=== PATIENT | female | born 1935 | race Caucasian/White ===

== ENCOUNTER → 2018-10-07 14:25 | Outpatient (CLI) | payer MEDICARE, OTHER, SELFPAY ==
--- NOTE | 2018-10-07 14:33 | DI.RAD.S_ITS ---
PROCEDURE: XR CHEST 2V INDICATIONS: cough TECHNIQUE: 2 views of the chest were acquired. COMPARISON: [facility], , CHEST 1 VIEW, 01/07/2017, 12:11. FINDINGS: Surgical changes and devices: None. Lungs and pleura: No pleural effusions or pneumothorax. Lungs are clear. Mediastinum: Mediastinal contours are normal. Heart size is normal. There is aortic atherosclerosis. Bones and chest wall: No suspicious bony abnormalities. Degenerative changes of the spine and shoulders are present. Soft tissues appear unremarkable. IMPRESSION: Stable chest. No acute cardiopulmonary process is evident. Dictated by: Kade Nation M.D. on 10/07/2018 at 14:24 Approved by: Kade Nation M.D. on 10/07/2018 at 14:27
== END ==
PROVIDERS: Family Provider Family Medicine; PCP Family Medicine; Visit Provider Physician Assistant
DX: R05 Cough (principal); I70.0 Atherosclerosis of aorta
CPT/HCPCS: 71046

== ENCOUNTER → 2019-01-24 11:52 | Outpatient (CLI) | payer MEDICARE, OTHER, SELFPAY ==
--- NOTE | 2019-01-24 11:56 | DI.RAD.S_ITS ---
PROCEDURE: XR CHEST 2V INDICATIONS: bronchitis TECHNIQUE: 2 views of the chest were acquired. COMPARISON: [facility], CR, XR CHEST 2V, 10/07/2018, 14:39. FINDINGS: Surgical changes and devices: None. Lungs and pleura: Lungs are hyperinflated demonstrating chronically coarse interstitial markings and peripheral subpleural fibrotic changes.. No pleural effusions or pneumothorax. Mediastinum: Mediastinal contours are normal. Heart size is normal. Bones and chest wall: No suspicious bony abnormalities. Soft tissues appear unremarkable. Chronic, mild midthoracic compression fracture. IMPRESSION: Changes of emphysema/COPD and fibrosis without overlying pneumonia. Dictated by: Jesusita Figueroa M.D. on 01/24/2019 at 13:58 Approved by: Jesusita Figueroa M.D. on 01/24/2019 at 13:59
[2019-01-24 13:32] LABS: Add Manual Diff / Slide Review NO; Basophils Absolute Auto 0 /uL (0-100); Basophils Percent Auto 0.3 % (0-2); Eosinophils Absolute Auto 0 /uL (0-450); Eosinophils Percent Auto 0.3 % (2-4); Hematocrit 39.6 % (36-46); Hemoglobin 13.5 g/dL (12.0-16.0); Lymphocytes Absolute Auto 1700 /uL (1100-4500); Lymphocytes Percent Auto 26.1 % (25-40); Mean Corpuscular HGB Conc 34.1 % (30-36); Mean Corpuscular Volume 90.9 fL (80-100); Monocytes Absolute Auto 700 /uL (0-900); Monocytes Percent Auto 10.8 % (3-14); Neutrophils Absolute Auto 4100 /uL (1500-7000); Neutrophils Percent Auto 62.5 % (50-75); Platelet Count 174 X10^3/uL (150-400); Red Blood Cell Count 4.36 X10^6/uL (4.0-5.2); Red Cell Distribution Width 14.4 % (11.6-14.8); White Blood Cell Count 6.6 X10^3/uL (4.5-11.0)
[2019-01-24 14:27] LABS: Blood Urea Nitrogen 14 mg/dL (7-17); Calcium 9.1 mg/dL (8.4-10.2); Carbon Dioxide 31 mmol/L (22-32); Chloride 95 mmol/L (98-107); Estimated Glomerular Filt Rate > 60.0 mL/min (>60); Glucose 108 mg/dL (80-110); HEMOLYSIS < 15 (0-50); Sodium 135 mmol/L (137-145)
== END ==
PROVIDERS: Family Provider Family Medicine; PCP Family Medicine; Visit Provider Hospitalist
DX: J44.9 Chronic obstructive pulmonary disease, unspecified (principal)
CPT/HCPCS: 36415; 71046; 80048; 85025

== ENCOUNTER → 2019-03-10 12:42 | Outpatient (CLI) | payer MEDICARE, OTHER, SELFPAY ==
--- NOTE | 2019-03-10 | DI.MG.S_ITS ---
BILATERAL DIGITAL SCREENING MAMMOGRAM 3D/2D WITH CAD: 03/10/2019 CLINICAL: Routine screening. Comparison is made to exams dated: 01/13/2018 mammogram, 11/05/2016 mammogram, 07/30/2015 mammogram, 06/13/2014 mammogram, and 04/12/2013 mammogram - [facility]. The tissue of both breasts is heterogeneously dense. This may lower the sensitivity of mammography. Current study was also evaluated with a Computer Aided Detection (CAD) system. There are benign vascular calcifications in both breasts. There is a mole marker on the left breast. There is a linear scar marker overlying the left breast. No significant masses, calcifications, or other findings are seen in either breast. There has been no significant interval change. IMPRESSION: There is no mammographic evidence of malignancy. A 1 year screening mammogram is recommended. This exam was interpreted at Station ID: [id number]. NOTE: For mammograms, a report in lay terms will be sent to the patient. Approximately 15% of breast malignancies will not be visualized mammographically. In the management of a palpable breast mass, a negative mammogram must not discourage biopsy of a clinically suspicious lesion. Electronically Signed By: Juan Pablo Mary M.D. ecl/:03/10/2019 17:40:09 letter sent: Normal Exam ACR BI-RADS Category 2: Benign Finding(s) [id number]
== END ==
PROVIDERS: Family Provider Family Medicine; PCP Family Medicine; Visit Provider Family Medicine
DX: Z12.31 Encounter for screening mammogram for malignant neoplasm of breast (principal)
CPT/HCPCS: 77063; 77067

== ENCOUNTER → 2019-04-10 11:25 | Outpatient (CLI) | payer MEDICARE, OTHER, SELFPAY ==
--- NOTE | 2019-04-10 11:28 | DI.MRI.S_ITS ---
PROCEDURE: MR HEAD/BRAIN WO CON INDICATIONS: anosmia TECHNIQUE: Non-contrast axial T1 spin echo, axial T2 fast spin echo, sagittal and axial FLAIR, coronal T2 fast spin echo, axial gradient echo, axial diffusion and ADC through the brain. COMPARISON: None. FINDINGS: Image quality: Excellent. CSF spaces: Ventricles appear symmetric in size and shape. Basal cisterns are patent. No extra-axial fluid collections. Brain: No intracranial bleeds or mass effects. There is cerebral volume loss for age. There are periventricular and deep white matter chronic small vessel ischemic changes. Brainstem appears normal. Diffusion-weighted images show no acute ischemic insults. No chronic ischemic insults but microvascular atherosclerotic changes relatively prominent in this patient, consistent with advanced age.. Normal intravascular flow voids are present. Skull and face: Calvarial bone marrow is normal in signal. Orbits are normal. Sinuses: Sinuses and mastoids are clear. IMPRESSION: Moderately severe microvascular atherosclerotic change in the deep white matter of each hemisphere, consistent with advanced age. No area of mass or trauma is found that would explain anosmia. The adjacent paranasal sinuses appear normal. Dictated by: Haris Cancino M.D. on 04/10/2019 at 12:48 Approved by: Haris Cancino M.D. on 04/10/2019 at 12:50
== END ==
PROVIDERS: PCP Family Medicine; Visit Provider Family Medicine
DX: R43.0 Anosmia (principal); I67.2 Cerebral atherosclerosis
CPT/HCPCS: 70551

== ENCOUNTER → 2019-06-29 08:38 | Outpatient (CLI) | payer MEDICARE, OTHER, SELFPAY ==
--- NOTE | 2019-06-29 08:41 | DI.US.S_ITS ---
PROCEDURE: US PERIPH VENOUS LOW EXTREM LT INDICATIONS: INTERMITTENT LEFT LEG SWELLING TECHNIQUE: Real-time imaging, as well as color and pulse Doppler interrogation, were performed of the lower extremity deep veins from the inguinal ligament to the popliteal fossa. COMPARISON: None. FINDINGS: The common femoral, femoral and popliteal veins are normally compressible, and free of intraluminal thrombus. Color and pulse Doppler demonstrate normal phasic intraluminal flow. There is normal augmentation response to distal compression maneuver. IMPRESSION: Negative for deep venous thrombosis. Dictated by: Tan Barnett M.D. on 06/29/2019 at 10:34 Approved by: Tan Barnett M.D. on 06/29/2019 at 10:35
== END ==
PROVIDERS: Family Provider Family Medicine; PCP Family Medicine; Visit Provider Nurse Practitioner Family
DX: R60.0 Localized edema (principal); M25.472 Effusion, left ankle
CPT/HCPCS: 93971

== ENCOUNTER → 2020-11-28 15:40 | Outpatient (CLI) | payer OTHER, MEDICARE, SELFPAY ==
[2020-11-28] MEDS: COVID-19 VACC #1, MRNA(MOD) 100 MCG/0.5 ML VIAL IM (15:56)
== END ==
PROVIDERS: Family Provider Family Medicine; PCP Family Medicine; Visit Provider Internal Medicine
DX: Z23 Encounter for immunization (principal)
CPT/HCPCS: 0011A; 91301

== ENCOUNTER → 2020-12-26 15:29 | Outpatient (CLI) | payer MEDICARE, SELFPAY ==
[2020-12-26] MEDS: COVID-19 VACC #2, MRNA(MOD) 100 MCG/0.5 ML VIAL IM (15:32)
== END ==
PROVIDERS: Family Provider Family Medicine; PCP Nurse Practitioner Family; Visit Provider Internal Medicine
DX: Z23 Encounter for immunization (principal)
CPT/HCPCS: 0012A; 91301

== ENCOUNTER 2020-12-31 14:46 | Emergency (ER) | payer MEDICARE, OTHER, SELFPAY ==
[2020-12-31 15:01] VITALS: PULSE 71; RESP 22; TEMP 36.4; O2SAT 95
== END 2020-12-31 17:50 | disposition left against medical advice (07) ==
PROVIDERS: Emergency Provider Emergency Medicine; Family Provider Family Medicine; PCP Nurse Practitioner Family
CPT/HCPCS: 99281

== ENCOUNTER 2021-01-01 10:55 | Emergency (ER) | payer MEDICARE, OTHER, SELFPAY ==
--- NOTE | 2021-01-01 11:09 | PC.NURSE ---
pt here 1 days ago and left before coming back to a room.
[2021-01-01 11:21] VITALS: BP 205/98; PULSE 64; RESP 17; TEMP 36.3; O2SAT 99
--- NOTE | 2021-01-01 11:27 | ED.SKABFB ---
HPI - Skin/Abscess/Foreign Bdy General Chief complaint: Allergic Reaction Stated complaint: Covid vaccine reaction facial rash 12/26 Time Seen by Provider: 01/01/21 11:19 Source: patient Mode of arrival: Ambulatory Limitations: no limitations History of Present Illness HPI narrative: Patient is an 85-year-old female who presents with rash on her face ongoing since November 20 since just after her 1st COVID vaccination. She says it persisted is even through to her 2nd it is pruritic in nature it seems to be only on her face. She has tried Vaseline and hydrocortisone cream but it does not seem to be getting any better. It is not anywhere else on her body she says when she scratches it it gray. MD complaint: rash Location: face Related Data Previous Rx's Medication Instructions Recorded metoprolol succinate 50 mg 50 mg PO QDAY #90 tab 12/12/20 tablet,extended release 24 hr prednisone 40 mg PO DAILY #10 tab 01/01/21 Allergies Allergy/AdvReac Type Severity Reaction Status Date / Time No Known Drug Allergies Allergy Verified 06/28/19 08:52 Review of Systems Review of Systems Narrative: GENERAL: Denies chills,fever HEENT: Denies throat pain RESPIRATORY: Denies dyspnea, cough, wheezing CARDIOVASCULAR: Denies chest pain, palpitations GASTROINTESTINAL: Denies nausea, vomiting MUSCULOSKELETAL: Denies extremity pain, injury SKIN: See HPI NEUROLOGIC: Denies weakness, dizziness, headache, numbness 8 point review of systems is negative except for those stated above and HPI Patient History Medical History High blood pressure Seborrheic dermatitis (02/01/15) Social History Smoking Status: Former smoker Smoking Status: Former smoker Exam Initial Vital Signs Initial Vital Signs: Vital Signs Temperature 97.4 F L 01/01/21 11:21 Pulse Rate 64 01/01/21 11:21 Respiratory Rate 17 01/01/21 11:21 Blood Pressure 205/98 H 01/01/21 11:21 Pulse Oximetry 99 01/01/21 11:21 GENERAL: Alert pleasant 85-year-old female and in no acute distress. HEENT: Head atraumatic,EOMI, pupils reactive, face symmetric, moist mucous membranes CARDIOVASCULAR: Regular rate and rhythm without murmurs, rubs or gallops. RESPIRATORY: Breath sounds equal bilaterally, no wheezes rales or rhonchi. EXTREMITIES: Normal range of motion, no clubbing or edema. Neurovascularly intact NEUROLOGICAL: Alert and oriented x4.Normal gait and speech. Cranial nerves II through XII grossly intact. SKIN: Erythematous along for head and hair lines. And not too much on face. No other hives or erythema on back torso or extremities Course Vital Signs Vital signs: Vital Signs - 8 hr 01/01/21 11:21 Temperature 97.4 F L Pulse Rate 64 Respiratory Rate 17 Blood Pressure 205/98 H Pulse Oximetry 99 Discharge Plan Departure Patient Disposition: Home Clinical Impression: Rash Instructions: Hives, DI for Hives, DI for General Allergic Reactions Activity Restrictions/Additional Instructions: *You have been diagnosed with rash *What to do: This is likely from the vaccination, at this time unlikely to be infected. *Continue to take medications as directed prednisone 40 mg once a day for 5 days--> sent to [facility] Benadryl 25 mg every 6 hours if needed for itching *Follow up with your primary care provider in 2-3 days *Return to ER if you should have worsening rash fever shortness of breath tongue swelling lip swelling or any new, worsening or concerning symptoms Prescriptions: New prednisone 20 mg tablet 40 mg PO DAILY Qty: 10 RF: 0 No Action metoprolol succinate [Toprol XL] 50 mg tablet extended release 24 hr 50 mg PO QDAY Qty: 90 RF: 0 Referrals: Annie Nation ARNP [Primary Care Provider] -
== END 2021-01-01 11:40 | disposition home or self-care (01) ==
PROVIDERS: Emergency Provider Emergency Medicine; Family Provider Family Medicine; PCP Nurse Practitioner Family
DX: R21 Rash and other nonspecific skin eruption (principal)
CPT/HCPCS: 99281

== ENCOUNTER → 2021-03-10 10:08 | Outpatient (CLI) | payer OTHER, SELFPAY ==
[2021-03-10 10:45] LABS: Hematocrit 42.1 % (36-46); Hemoglobin 14.3 g/dL (12.0-16.0); Mean Corpuscular HGB Conc 33.9 % (30-36); Mean Corpuscular Hemoglobin 31.5 PG (26-34); Mean Corpuscular Volume 92.9 fL (80-100); Platelet Count 182 X10^3/uL (150-400); Red Blood Cell Count 4.54 X10^6/uL (4.0-5.2); Red Cell Distribution Width 14.5 % (11.6-14.8); White Blood Cell Count 7.9 X10^3/uL (4.5-11.0)
[2021-03-10 11:11] LABS: Alanine Aminotransferase 17 IU/L (<35); Albumin 4.5 g/dL (3.5-5.0); Albumin Globulin Ratio 1.4 (1.0-2.8); Alkaline Phosphatase 87 U/L (38-126); Aspartate Aminotransferase 29 IU/L (14-36); BUN Creatinine Ratio 16.9 (6-22); Blood Urea Nitrogen 12 mg/dL (7-17); Calcium 9.6 mg/dL (8.4-10.2); Carbon Dioxide 28 mmol/L (22-32); Chloride 102 mmol/L (98-107); Cholesterol 220 mg/dL (140-199); Estimated Glomerular Filt Rate > 60.0 mL/min (>60); Globulin 3.2 g/dL (1.7-4.1); Glucose 102 mg/dL (80-110); HDL Cholesterol 60 mg/dL (40-60); HEMOLYSIS < 15 (0-50); LDL Cholesterol Calculated 144 mg/dL (<100); Potassium 3.8 mmol/L (3.4-5.1); Sodium 138 mmol/L (137-145); Total Protein 7.7 g/dL (6.3-8.2); Triglycerides 82 mg/dL (35-150)
[2021-03-10 11:42] LABS: TSH w/ Reflex to FT4 2.18 uIU/mL (0.47-4.68)
[2021-03-10 11:53] LABS: Vitamin B12 324 pg/mL (239-931)
== END ==
PROVIDERS: Family Provider Family Medicine; PCP Nurse Practitioner Family; Referring Provider Nurse Practitioner Family; Visit Provider Nurse Practitioner Family
DX: I10 Essential (primary) hypertension (principal); F41.9 Anxiety disorder, unspecified; G62.9 Polyneuropathy, unspecified; Z13.6 Encounter for screening for cardiovascular disorders
CPT/HCPCS: 36415; 80053; 80061; 82607; 84443; 85027

== ENCOUNTER 2021-05-14 21:15 | Observation (INO) | payer OTHER, SELFPAY ==
[2021-05-14] VITALS (12 sets, daily range): BP systolic 162–209; BP diastolic 71–105; PULSE 76–105; RESP 15–29; O2SAT 87–96
--- NOTE | 2021-05-14 21:31 | ED.NEUROSD ---
HPI - Neuro Symptoms/Deficit General Chief Complaint: Neuro Symptoms/Deficit Stated Complaint: Stroke Time Seen by Provider: 05/14/21 21:16 History of Present Illness HPI Narrative: 85-year-old female nonsmoker with history of hypertension presents by EMS as a code stroke due to a sudden onset of garbled speech that started at 7:45 p.m. per EMS. She was reported to be in her normal state of health prior to this event. She does not take any blood thinners. She has a very poor historian and contributes little to nothing to the exam. EMS reports that she had a brief improvement in her symptoms but in front of them started becoming confused and garbled again. She is activated as a code stroke and taken directly to CT. Related Data Previous Rx's Medication Instructions Recorded metoprolol succinate 50 mg 50 mg PO QDAY #90 tab 02/04/21 tablet,extended release 24 hr (Toprol XL) buspirone 5 mg tablet 5 mg PO DAILY #90 tab 03/13/21 ketoconazole 2 % topical cream 1 applic TOPICAL DAILY #30 g 03/13/21 sertraline 25 mg tablet 25 mg PO DAILY #90 tab 04/22/21 Allergies Allergy/AdvReac Type Severity Reaction Status Date / Time No Known Drug Allergies Allergy Verified 04/22/21 11:19 Review of Systems Review of Systems ROS Unobtainable: Unobtainable due to mental status/LOC Patient History Medical History Abnormal chest xray Anxiety (~2019) Cataracts, bilateral Chicken pox Depression (~2019) Diverticular disease (~1969) Eczema Endometriosis Essential hypertension (01/14/17) Fibroids Hearing loss Heart murmur Measles Mixed hyperlipidemia Neuropathy Peripheral neuropathy (~2018) Post-menopause Psoriasis Rheumatic fever Seborrheic dermatitis (02/01/15) Shoulder pain (~2019) Surgical History Anesthesia History of carpal tunnel surgery History of hysterectomy History of tonsillectomy Family History Father Pancreatic cancer Brother History of heart disease Social History Smoking Status: Former smoker second hand exposure: No alcohol intake: never substance use type: does not use Smoking Status: Former smoker Substance Use Type: does not use Exam Narrative Exam Narrative: GENERAL: [85] year old patient appears stated age. Well-developed patient, in mild distress. Alert but confused HEAD: Atraumatic. Normocephalic. EYES: Pupils equal round and reactive. Extraocular motions intact. No scleral icterus. No injection or drainage. ENT: Poor dentition Nose without bleeding, purulent drainage. Throat without erythema, tonsillar hypertrophy or exudate. Airway patent. NECK: Trachea midline. Non tender CARDIOVASCULAR: Regular rate and rhythm without murmurs, gallops, or rubs. RESPIRATORY: Clear to auscultation. Breath sounds equal bilaterally. No wheezes, rales, or rhonchi. GASTROINTESTINAL: Abdomen soft, non-tender, nondistended. EXTREMITIES: No edema or joint tenderness. BACK: Nontender without deformity or crepitance. No flank tenderness. NEURO: AOx3. SKIN: No rash or erythema of visible areas Initial Vital Signs Initial Vital Signs: Vital Signs Pulse Rate 77 05/14/21 21:31 Respiratory Rate 20 05/14/21 21:31 Pulse Oximetry 92 05/14/21 21:31 Scores NIH Stroke Scale Level of Conciousness: Alert, keenly responsive Ask month/age: Answers one question correctly, intubated follow commands Open/close eyes, close hand: Performs both tasks correctly Best gaze horizontal: Normal Visual hodges: No visual loss Facial palsy: Normal symetrical movement Left arm drift: No drift for full 10 sec Right arm drift: No drift for full 10 sec Left leg drift: No drift for full 5 sec Right leg drift: No drift for full 5 sec Limb ataxia: Absent Sensory on face/arms/legs: Normal, no sensory loss Best language: Severe aphasia, not much is understood, fragmented Dysarthria: Mild to mod,some slurring Extinction or inattention: No abnormality Total NIH Stroke scale score: 4 Course Orders Ordered: ED Orders 05/14/21 21:07 Complete Blood Count AUTO DIFF Stat Comprehensive Metabolic Panel Stat Troponin & CK Cardiac Panel Stat 05/14/21 21:[address] angio head and neck Stat EKG-12 Lead Stat 05/14/21 21:25 Partial Thromboplastin Time Stat Prothrombin Time INR Stat 05/14/21 21:48 COVID19 - ADMIT ([employer] swab/PCR) Stat 05/14/21 22:28 Urine Drug Screen, Rapid Stat 05/14/21 23:03 Urine Microscopic Stat Sodium Chloride (Normal Saline 0.9%) 1,000 mls @ 150 mls/hr IV CONT ALVINA Last Admin: 05/14/21 21:41 Dose: 150 mls/hr Documented by: BRYSON Discontinued Medications Labetalol HCl (Labetalol 20 Mg/4 Ml Syringe) 10 mg IV NOW ONE Stop: 05/14/21 21:33 Last Admin: 05/14/21 21:39 Dose: 10 mg Documented by: BRYSON Ondansetron HCl (Ondansetron 4 Mg/2 Ml Inj) 4 mg IV NOW ONE Stop: 05/14/21 23:23 Last Admin: 05/14/21 23:26 Dose: 4 mg Documented by: Reevaluation(s) Reevaluation #1: neighbor is here now at the bedside and states that she was actually acting a bit goofy with garbled speech at 1600. She went home and went back to check on her at 1900 and found her symptoms to be worse. Jill Claros ([phone]). This will take her out of TPA window. Consultations Consultation #1: call to [facility] to discuss case, we share the opinion that patient is not candidate for TPA, or intervention and the minimal stenosis of carotid bulbs noted on CTA are not sufficient to require intervention Vital Signs Vital signs: Vital Signs - 8 hr 05/14/21 21:31 05/14/21 21:39 05/14/21 21:49 Pulse Rate 77 76 105 H Respiratory Rate 20 18 Blood Pressure 195/88 H 189/84 H Pulse Oximetry 92 94 05/14/21 22:00 05/14/21 22:01 05/14/21 22:27 Pulse Rate 78 78 80 Respiratory Rate 18 15 16 Blood Pressure 194/105 H 198/87 H Pulse Oximetry 95 95 90 L 05/14/21 22:30 05/14/21 22:46 05/14/21 23:00 Pulse Rate 79 83 85 Respiratory Rate 17 19 25 H Blood Pressure 195/90 H 184/80 H 192/79 H Pulse Oximetry 92 05/14/21 23:15 05/14/21 23:30 05/14/21 23:46 Pulse Rate 88 101 H 92 H Respiratory Rate 25 H 29 H 23 Blood Pressure 194/78 H 209/84 H 162/71 H Pulse Oximetry 96 87 L 90 L 05/15/21 00:00 05/15/21 00:14 05/15/21 00:15 Pulse Rate 91 H 88 Respiratory Rate 20 17 Blood Pressure 152/69 H 146/65 H Pulse Oximetry 92 89 L MDM - Neuro Symptoms/Deficit Lab Data Result diagrams: 05/14/21 21:07 05/14/21 21:07 Labs: Lab Results 05/14/21 05/14/21 05/14/21 Range/Units 21:07 21:07 21:25 WBC 9.7 (4.5-11.0) X10^3/uL RBC 4.62 (4.0-5.2) X10^6/uL Hgb 14.3 (12.0-16.0) g/dL Hct 42.9 (36-46) % MCV 93.0 (80-100) fL MCH 30.9 (26-34) PG MCHC 33.3 (30-36) % RDW 13.9 (11.6-14.8) % Plt Count 218 (150-400) X10^3/uL Neut % (Auto) 69.8 (50-75) % Lymph % (Auto) 20.8 L (25-40) % [place] % (Auto) 8.0 (3-14) % Eos % (Auto) 0.9 L (2-4) % Baso % (Auto) 0.5 (0-2) % Neut # (Auto) 6700 (6099-4483) /uL Lymph # (Auto) 2000 (4481-8661) /uL [place] # (Auto) 800 (0-900) /uL Eos # (Auto) 100 (0-450) /uL Baso # (Auto) 0 (0-100) /uL PT 11.4 (10.1-12.7) SECONDS INR 1.0 (0.9-1.3) APTT 34 (26.4-36.2) SECONDS Sodium 133 L (137-145) mmol/L Potassium 4.1 (3.4-5.1) mmol/L Chloride 97 L (98-107) mmol/L Carbon Dioxide 30 (22-32) mmol/L BUN 15 (7-17) mg/dL Creatinine 0.78 (0.52-1.04) mg/dL Estimated GFR > 60.0 (>60) mL/min BUN/Creatinine Ratio 19.2 (6-22) Glucose 96 (80-110) mg/dL Calcium 9.3 (8.4-10.2) mg/dL Total Bilirubin 1.3 (0.2-1.3) mg/dL AST 51 H (14-36) IU/L ALT 17 (<35) IU/L Alkaline Phosphatase 77 (38-126) U/L Total Creatine Kinase 63 (30-135) U/L CK-MB (CK-2) TNP CK-MB (CK-2) Rel Index TNP Troponin I < 0.012 (0.01-0.034) ng/mL Total Protein 7.5 (6.3-8.2) g/dL Albumin 4.4 (3.5-5.0) g/dL Globulin 3.1 (1.7-4.1) g/dL Albumin/Globulin Ratio 1.4 (1.0-2.8) U Opiates 300ng/mL cut (Negative) Ur Oxycodone Screen (Negative) Urine Methadone Screen (Negative) Ur Barbiturates Screen (Negative) U Tricyclic Antidepress (Negative) Ur Phencyclidine Scrn (Negative) Ur Amphetamines Screen (Negative) U Methamphetamines Scrn (Negative) Ur MDMA Scrn (Ecstasy) (Negative) U Benzodiazepines Scrn (Negative) Urine Cocaine Screen (Negative) U Marijuana (THC) Screen (Negative) SARS-CoV-2 (PCR) (Negative) 05/14/21 05/14/21 Range/Units 21:48 22:28 WBC (4.5-11.0) X10^3/uL RBC (4.0-5.2) X10^6/uL Hgb (12.0-16.0) g/dL Hct (36-46) % MCV (80-100) fL MCH (26-34) PG MCHC (30-36) % RDW (11.6-14.8) % Plt Count (150-400) X10^3/uL Neut % (Auto) (50-75) % Lymph % (Auto) (25-40) % [place] % (Auto) (3-14) % Eos % (Auto) (2-4) % Baso % (Auto) (0-2) % Neut # (Auto) (4287-3238) /uL Lymph # (Auto) (9215-6646) /uL [place] # (Auto) (0-900) /uL Eos # (Auto) (0-450) /uL Baso # (Auto) (0-100) /uL PT (10.1-12.7) SECONDS INR (0.9-1.3) APTT (26.4-36.2) SECONDS Sodium (137-145) mmol/L Potassium (3.4-5.1) mmol/L Chloride (98-107) mmol/L Carbon Dioxide (22-32) mmol/L BUN (7-17) mg/dL Creatinine (0.52-1.04) mg/dL Estimated GFR (>60) mL/min BUN/Creatinine Ratio (6-22) Glucose (80-110) mg/dL Calcium (8.4-10.2) mg/dL Total Bilirubin (0.2-1.3) mg/dL AST (14-36) IU/L ALT (<35) IU/L Alkaline Phosphatase (38-126) U/L Total Creatine Kinase (30-135) U/L CK-MB (CK-2) CK-MB (CK-2) Rel Index Troponin I (0.01-0.034) ng/mL Total Protein (6.3-8.2) g/dL Albumin (3.5-5.0) g/dL Globulin (1.7-4.1) g/dL Albumin/Globulin Ratio (1.0-2.8) U Opiates 300ng/mL cut Negative (Negative) Ur Oxycodone Screen Negative (Negative) Urine Methadone Screen Negative (Negative) Ur Barbiturates Screen Negative (Negative) U Tricyclic Antidepress Negative (Negative) Ur Phencyclidine Scrn Negative (Negative) Ur Amphetamines Screen Negative (Negative) U Methamphetamines Scrn Negative (Negative) Ur MDMA Scrn (Ecstasy) Negative (Negative) U Benzodiazepines Scrn Negative (Negative) Urine Cocaine Screen Negative (Negative) U Marijuana (THC) Screen Negative (Negative) SARS-CoV-2 (PCR) Negative (Negative) Point of Care Testing Glucose POC 98 Urine Dip Bedside Urine Glucose Negative Bedside Urine Bilirubin - Negative Bedside Urine Ketone - Negative Urine Specific [place] 1.010 Bedside Urine Occult Blood - Negative Bedside Urine pH 7.0 Bedside Urine Protein - Negative Bedside Urine Urobilinogen - Negative Bedside Urine Nitrite - Negative Bedside Urine Leukocytes +/- [address] scan - head: Radiologist's Impression: no definite intracranial hemorrhage or other imaging contraindications to tPA CTA Head/Neck: Radiologist's Impression: no high-grade stenosis or occlusion of the central intracranial arteries nor any head or neck arteries. There is narrowing of up to approximately 50% in the carotid bulbs. Aberrant right subclavian artery. Moderate cerebral volume loss. Bilateral lacunar infarcts of indeterminate acuity Discharge Plan Departure Patient Disposition: Admitted As Inpatient Clinical Impression: Cerebrovascular accident Qualifiers: CVA mechanism: unspecified Qualified Code(s): I63.9 - Cerebral infarction, unspecified
[2021-05-14] MEDS: LABETALOL 20 MG/4 ML SYRINGE 10 MG IV (21:39)
[2021-05-14] MEDS: SODIUM CHLORIDE 0.9% 1,000 ML 150 ML IV (21:41)
[2021-05-14 21:43] LABS: Add Manual Diff / Slide Review NO; Basophils Absolute Auto 0 /uL (0-100); Basophils Percent Auto 0.5 % (0-2); Eosinophils Absolute Auto 100 /uL (0-450); Eosinophils Percent Auto 0.9 % (2-4); Hematocrit 42.9 % (36-46); Hemoglobin 14.3 g/dL (12.0-16.0); Lymphocytes Absolute Auto 2000 /uL (1100-4500); Lymphocytes Percent Auto 20.8 % (25-40); Mean Corpuscular HGB Conc 33.3 % (30-36); Mean Corpuscular Hemoglobin 30.9 PG (26-34); Monocytes Absolute Auto 800 /uL (0-900); Neutrophils Absolute Auto 6700 /uL (1500-7000); Neutrophils Percent Auto 69.8 % (50-75); Platelet Count 218 X10^3/uL (150-400); Red Blood Cell Count 4.62 X10^6/uL (4.0-5.2); Red Cell Distribution Width 13.9 % (11.6-14.8); White Blood Cell Count 9.7 X10^3/uL (4.5-11.0)
[2021-05-14 21:46] LABS: Prothrombin Time 11.4 SECONDS (10.1-12.7)
[2021-05-14 21:46] LABS: Alanine Aminotransferase 17 IU/L (<35); Albumin 4.4 g/dL (3.5-5.0); Albumin Globulin Ratio 1.4 (1.0-2.8); Alkaline Phosphatase 77 U/L (38-126); Aspartate Aminotransferase 51 IU/L (14-36); BUN Creatinine Ratio 19.2 (6-22); Bilirubin Total 1.3 mg/dL (0.2-1.3); Blood Urea Nitrogen 15 mg/dL (7-17); Calcium 9.3 mg/dL (8.4-10.2); Carbon Dioxide 30 mmol/L (22-32); Chloride 97 mmol/L (98-107); Creatine Kinase 63 U/L (30-135); Estimated Glomerular Filt Rate > 60.0 mL/min (>60); Globulin 3.1 g/dL (1.7-4.1); Glucose 96 mg/dL (80-110); HEMOLYSIS 37 (0-50); Potassium 4.1 mmol/L (3.4-5.1); Sodium 133 mmol/L (137-145); Total Protein 7.5 g/dL (6.3-8.2)
[2021-05-14 21:49] LABS: PTT Partial Thromboplastin Tim 34 SECONDS (26.4-36.2)
[2021-05-14 21:58] LABS: Troponin I < 0.012 ng/mL (0.01-0.034)
[2021-05-14 22:49] LABS: UR Morphine/Opiate cutoff 300 Negative (Negative); Ur Creatinine Normal (Normal); Ur Specific Gravity Normal (Normal); Urine Amphetamines Negative (Negative); Urine Barbiturates Negative (Negative); Urine Benzodiazepines Negative (Negative); Urine Cocaine Negative (Negative); Urine MDMA Negative (Negative); Urine Methadone Negative (Negative); Urine Methamphetamines Negative (Negative); Urine Oxycodone Negative (Negative); Urine Phencyclidine Negative (Negative); Urine Tetrahydrocannabinol Negative (Negative); Urine Tricyclic Antidepressant Negative (Negative); Urine pH Normal (Normal)
[2021-05-14 22:54] LABS: COVID19 - ADMIT (NP swab/PCR) Negative (Negative)
[2021-05-14] MEDS: ONDANSETRON 4 MG/2 ML INJ IV (23:26)
[2021-05-15] VITALS (11 sets, daily range): BP systolic 134–159; BP diastolic 55–86; PULSE 61–92; RESP 16–20; TEMP 36.9–37.3; O2SAT 89–94; BMI 22.6
--- NOTE | 2021-05-15 00:44 | DI.MRI.S_ITS ---
PROCEDURE: MR STROKE Pre- and post-contrast brain MRI, non-contrast brain MR angiogram, pre- and postcontrast neck MR angiogram INDICATIONS: Confusion dysarthria TECHNIQUE: Brain: Noncontrast axial T1 spin echo, axial T2 fast spin echo, sagittal and axial FLAIR, coronal T2 fast spin echo, axial gradient echo, axial diffusion and ADC through the brain. After the administration of contrast, axial 3D VIBE of the cranial vasculature and brain. Brain MRA: Non-contrast 3-D time of flight MR angiogram, with multiple almsvep-xkunbwzor-ktesbwkkod (MIP) reformats performed. Neck MRA: Axial and sagittal TruFISP through the neck. Coronal dynamic MR angiogram during administration of contrast in the arterial and venous phases, with 3-dimenstional tpwtfsu-ggkwnvbyp-voduvvyumm (MIP) reformats constructed from subtraction images. COMPARISON: [facility], MR, MR HEAD/BRAIN WO CON, 04/10/2019, 11:40. FINDINGS: Image quality: Excellent. BRAIN: CSF spaces: Ventricles are normal in size and shape. Basal cisterns are patent. No extra-axial fluid collections. Brain: No intracranial bleeds or mass effects. There is moderate, diffuse cerebral volume loss. There are moderate periventricular and subcortical white matter chronic microvascular ischemic changes. Daniels-white matter interface is normal. Diffusion weighted images show no acute ischemic insults. Brainstem appears normal. Normal intravascular flow voids are present. Dural sinuses demonstrate normal postcontrast enhancement. No abnormal intracranial enhancement. Skull and face: Calvarial marrow signal is normal. Orbits appear normal. Sinuses: Sinuses and mastoids are clear. BRAIN MR ANGIOGRAM: Anterior circulation: Intracranial internal carotid arteries are normal in enhancement. Mild atherosclerotic irregularity noted in the cavernous and supraclinoid segments of the internal carotid arteries bilaterally which causes mild narrowing of the vessels. The flow within the paired anterior cerebral arteries is normal and symmetric. The flow within the middle cerebral arteries is normal and symmetric. The anterior communicating artery is seen. No stenoses, occlusions, or aneurysms. Posterior circulation: The visualized portions of the vertebral arteries demonstrate normal caliber, and join to form a normal appearing basilar artery. The flow within the posterior cerebral arteries is normal and symmetric. No stenoses, occlusions, or aneurysms. NECK MR ANGIOGRAM: Carotids: Great vessels aberrant right subclavian artery and common carotid trunk as they arise from the aortic arch. The origins of the common carotid arteries appear patent. The calibers and courses of both common carotid arteries are normal. Atherosclerotic irregularity noted in the origin of the right internal carotid artery which causes less than 50% stenosis of the vessel. Atherosclerotic irregularity noted in the origin of the left internal carotid artery which causes moderate, approximately 50-60% stenosis of the vessel. Posterior circulation: Atherosclerotic irregularity noted in the origin of the left vertebral artery which causes short segment high-grade stenosis. Origin of the right vertebral artery is fully patent. Patient is left vertebral artery dominant. More superior portions of both vertebral arteries demonstrate normal course and caliber, and join to form a normal appearing basilar artery. Miscellaneous: Subclavian arteries appear patent. Pre-contrast images through the neck show no soft tissue abnormalities. IMPRESSION: BRAIN MRI: 1. No acute intracranial disease process. 2. No areas of acute infarction. 3. No abnormal intracranial mass or suspicious postcontrast enhancement. 4. Moderate, diffuse cerebral volume loss. 5. Moderate periventricular and subcortical white matter chronic microvascular ischemic change. BRAIN MR ANGIOGRAM: No large vessel occlusion, hemodynamically significant vascular stenosis, vascular dissection or aneurysm. NECK MR ANGIOGRAM: 1. Less than 50% stenosis of the origin of the right internal carotid artery. 2. Moderate, 50-60% stenosis of the origin of the left internal carotid artery. 3. High-grade, short segment stenosis of the origin of the left vertebral artery. Patient is left vertebral artery dominant. 4. Origin of the right vertebral artery is fully patent. Dictated by: Eileen Robledo MD, PhD on 05/15/2021 at 11:41 Approved by: Eileen Robledo MD, PhD on 05/15/2021 at 11:52
--- NOTE | 2021-05-15 01:06 | P.HP_ITS ---
History of Present Illness History of Present Illness Date Patient Seen: 05/15/21 Time Patient Seen: 01:07 Chief complaint: Stroke Narrative: Patient is a 85-year-old female Leatha Calhoun who was presented by EMS to the ED as a code stroke due to a sudden onset of garbled speech and confusion that was noted at 4:00 p.m. per her neighbor, (this will take her out of TPA window) when the neighbor returned to the home to check on the patient again at 7pm the confusion and word salad was continuing to worsen and the neighbor called EMS. Neighbor: Jill Claros ([phone]). She was reported to be in her normal state of health prior to this event. She does not take any blood thinners. Patient is confused and a poor historian and contributes nothing to the exam. EMS reports that she had a brief improvement in her symptoms but in front of them started becoming confused and garbled again. She is activated as a code stroke and taken directly to CT in ED. patient's initial blood pressure in the ED 195/88, with a heart rate 76 and respiratory rate 17 O2 saturation 89% on room air, and NiH:4. Patient has a history hypertension, depression with anxiety, and a heart murmur. Patient takes metoprolol, sertraline, and buspirone. Upon admit patient is slightly febrile at 99.1, BP elevated but improved from ED at 159/86, HR 92, R 16, O2 92% on room air. Patient's CBC was within normal limits, CMP only noted a sodium of 133, chloride 97, AST of 51, troponin negative. Head & neck CTA demonstrated no high-grade stenosis or occlusion of the central intracranial arteries nor any head or neck arteries. There is narrowing of up to approximately 50% in the carotid bulbs. Aberrant right subclavian artery. Moderate cerebral volume loss. Bilateral lacunar infarcts of indeterminate acuity. Dr. oliveros in ED consulted with tele stroke and determined that patient is not candidate for TPA, or intervention and the minimal stenosis of carotid bulbs noted on CTA are not sufficient to require intervention. Dr. oliveros attempted to contact patient's sister and the line had been disconnected. Patient is alert and orientated with a appropriate thoug ht process intermittently. Patient intermittently during exam asked why she was here and if she was going home. Followed by moments clarity. Patient's speech was clear and demonstrated no dysarthria/word salad. Patient denies any symptoms at this time, no chest pain, shortness of breath, change in vision, weakness, numbness, tingling, abdominal pain, nausea, vomiting, recent illness or injury, no head injury or loss of consciousness, fever, body aches, chills. Patient did complain of a severe right leg cramping during exam that resolved within seconds and a mild headache and excessive sleepiness. Patient admitted for stroke versus TIA rule out. Patient History Medical History Abnormal chest xray Anxiety (~2019) Cataracts, bilateral Chicken pox Depression (~2019) Diverticular disease (~1969) Eczema Endometriosis Essential hypertension (01/14/17) Fibroids Hearing loss Heart murmur Measles Mixed hyperlipidemia Neuropathy Peripheral neuropathy (~2018) Post-menopause Psoriasis Rheumatic fever Seborrheic dermatitis (02/01/15) Shoulder pain (~2019) Surgical History Anesthesia History of carpal tunnel surgery History of hysterectomy History of tonsillectomy Family & Social History Family History Father Pancreatic cancer Brother History of heart disease Tobacco & Substance use: Smoking Status Former smoker alcohol intake never Substance Use Type does not use Meds Home Medications and Allergies Home Medications Medication Instructions Recorded Confirmed Type metoprolol succinate 50 mg 50 mg PO QDAY #90 tab 02/04/21 05/15/21 Rx tablet,extended release 24 hr (Toprol XL) buspirone 5 mg tablet 5 mg PO DAILY #90 tab 03/13/21 05/15/21 Rx ketoconazole 2 % topical cream 1 applic TOPICAL DAILY #30 g 03/13/21 05/15/21 Rx sertraline 25 mg tablet 25 mg PO DAILY #90 tab 04/22/21 05/15/21 Rx Allergies Allergy/AdvReac Type Severity Reaction Status Date / Time No Known Drug Allergies Allergy Verified 04/22/21 11:19 Review of Systems Review of Systems Narrative: Patient denies any current signs or symptoms with the exception of feeling very fatigued and sleepy, ROS negative with the exception of any other documentation within chart. Exam Vital Signs (past 8 hours): - 05/14/21 21:31 05/14/21 21:39 05/14/21 21:49 Temperature Pulse Rate 77 76 105 H Respiratory Rate 20 18 Blood Pressure 195/88 H 189/84 H Pulse Oximetry 92 94 05/14/21 22:00 05/14/21 22:01 05/14/21 22:27 Temperature Pulse Rate 78 78 80 Respiratory Rate 18 15 16 Blood Pressure 194/105 H 198/87 H Pulse Oximetry 95 95 90 L 05/14/21 22:30 05/14/21 22:46 05/14/21 23:00 Temperature Pulse Rate 79 83 85 Respiratory Rate 17 19 25 H Blood Pressure 195/90 H 184/80 H 192/79 H Pulse Oximetry 92 05/14/21 23:15 05/14/21 23:30 05/14/21 23:46 Temperature Pulse Rate 88 101 H 92 H Respiratory Rate 25 H 29 H 23 Blood Pressure 194/78 H 209/84 H 162/71 H Pulse Oximetry 96 87 L 90 L 05/15/21 00:00 05/15/21 00:14 05/15/21 00:15 Temperature Pulse Rate 91 H 88 Respiratory Rate 20 17 Blood Pressure 152/69 H 146/65 H Pulse Oximetry 92 89 L 05/15/21 00:53 Temperature 99.1 F Pulse Rate 92 H Respiratory Rate 16 Blood Pressure 159/86 H Pulse Oximetry 92 Oxygen Flow Rate 0 Narrative Exam Narrative: General: Patient is a well-developed, moderately-nourished elderly female, who looks appropriate for age, in no distress at this time. HEENT: Normocephalic, atraumatic, extraocular muscles intact, oral pharynx is clear and mucous membranes are dry. Neck is supple and symmetric, trachea is midline, no adenopathy, no thyroid enlargement, nontender, no masses palpated. Negative for JVD Chest: Normal AP diameter and contour without kyphoscoliosis, no nasal flaring, retractions, or tachypneic labored Lungs: Auscultation of all lung hodges are clear without adventitious sounds, wheezes, rhonchi, or rales. Cardio: S1 & S2 with regular rate and rhythm with systolic murmur II/, and without rubs, or gallops, no carotid bruit, no cardiac pulsations present. Abdomen: Soft nontender, negative for organomegaly, or masses. Bowel sounds are present in all 4 quadrants without guarding or rebound, no CVA tenderness. Musculoskeletal: Muscle strength and tone are equal within normal limits, no deformity, crepitus, effusions, cyanosis, clubbing or edema present. Full range of motion intact radial and pedal pulses are normal. Skin: Warm dry and intact without rashes, ulcerations or petechiae. Neuro: Alert and orientated x3, strength is +5/5 in all extremities, sensation to touch intact, no gross deficits noted of cranial nerves. Psych: Patient has a well-kept appearance, appropriate affect, mental status attitude thought context and judgment are appropriate for age. Objective Labs Result Diagrams: 05/14/21 21:07 05/14/21 21:07 Labs: Laboratory Results - last 24 hr 05/14/21 05/14/21 05/14/21 21:07 21:07 21:25 WBC 9.7 RBC 4.62 Hgb 14.3 Hct 42.9 MCV 93.0 MCH 30.9 MCHC 33.3 RDW 13.9 Plt Count 218 Neut % (Auto) 69.8 Lymph % (Auto) 20.8 L [place] % (Auto) 8.0 Eos % (Auto) 0.9 L Baso % (Auto) 0.5 Neut # (Auto) 6700 Lymph # (Auto) 2000 [place] # (Auto) 800 Eos # (Auto) 100 Baso # (Auto) 0 PT 11.4 INR 1.0 APTT 34 Sodium 133 L Potassium 4.1 Chloride 97 L Carbon Dioxide 30 BUN 15 Creatinine 0.78 Estimated GFR > 60.0 BUN/Creatinine Ratio 19.2 Glucose 96 Calcium 9.3 Total Bilirubin 1.3 AST 51 H ALT 17 Alkaline Phosphatase 77 Total Creatine Kinase 63 CK-MB (CK-2) TNP CK-MB (CK-2) Rel Index TNP Troponin I < 0.012 Total Protein 7.5 Albumin 4.4 Globulin 3.1 Albumin/Globulin Ratio 1.4 U Opiates 300ng/mL cut Ur Oxycodone Screen Urine Methadone Screen Ur Barbiturates Screen U Tricyclic Antidepress Ur Phencyclidine Scrn Ur Amphetamines Screen U Methamphetamines Scrn Ur MDMA Scrn (Ecstasy) U Benzodiazepines Scrn Urine Cocaine Screen U Marijuana (THC) Screen SARS-CoV-2 (PCR) 05/14/21 05/14/21 21:48 22:28 WBC RBC Hgb Hct MCV MCH MCHC RDW Plt Count Neut % (Auto) Lymph % (Auto) [place] % (Auto) Eos % (Auto) Baso % (Auto) Neut # (Auto) Lymph # (Auto) [place] # (Auto) Eos # (Auto) Baso # (Auto) PT INR APTT Sodium Potassium Chloride Carbon Dioxide BUN Creatinine Estimated GFR BUN/Creatinine Ratio Glucose Calcium Total Bilirubin AST ALT Alkaline Phosphatase Total Creatine Kinase CK-MB (CK-2) CK-MB (CK-2) Rel Index Troponin I Total Protein Albumin Globulin Albumin/Globulin Ratio U Opiates 300ng/mL cut Negative Ur Oxycodone Screen Negative Urine Methadone Screen Negative Ur Barbiturates Screen Negative U Tricyclic Antidepress Negative Ur Phencyclidine Scrn Negative Ur Amphetamines Screen Negative U Methamphetamines Scrn Negative Ur MDMA Scrn (Ecstasy) Negative U Benzodiazepines Scrn Negative Urine Cocaine Screen Negative U Marijuana (THC) Screen Negative SARS-CoV-2 (PCR) Negative Assessment & Plan Assessment & Plan narrative: 1. Neurological deficit (confusion and dysarthria), acute, present on admission -differential diagnosis TIA, stroke symptoms lasting greater than 24 hours, ischemic stroke, intracranial hemorrhage, subdural hematoma, epidural hematoma, seizure, brain tumor, migraine, vertigo, hypoglycemia, Aniya Lucien syndrome, multiple sclerosis, aortic dissection -NIH in ED:4-On Admit NIH:0, symptoms had resolved by the time the patient was admitted to the floor. Temp: 99.1, sodium 133, chloride 97, AST of 51, troponin negative. Head & neck CTA demonstrated no high-grade stenosis or occlusion of the central intracranial arteries nor any head or neck arteries. There is narrowing of up to approximately 50% in the carotid bulbs. Aberrant right subclavian artery. Moderate cerebral volume loss. Bilateral lacunar infarcts of indeterminate acuity. Vital signs q.4 hours, neuro checks PRN, NIH QShift, notify provider for temp greater than 38 C, , heart rate >100 -treat systolic blood pressure>220 or diastolic blood pressure> 120 -activity: Patient up with assistance only until initial physical therapy assessment is performed, then mobilize as recommended by Physical therapy, strict fall precautions. -supplemental O2 to maintain> 94%, additional bedside swallow evaluation, aspiration precautions -Diet NPO until swallow evaluation is done, then heart healthy if cleared -fluids:NS 100cc/Hr -Medications: Aspirin 325 mg within 48 hours, Plavix 75 mg daily, atorvastatin 80 mg -labs: BMP, TSH, troponins #3 in am, Lipid panel-ordered Dimer due to leg cramping (Neg Homans) -PT/OT/speech consult ordered -stroke MR tomorrow -requested nursing staff to contact [facility] in AM-to request next of kin contact information. -I personally reviewed Family Practice and Internal Medicine office visits 01/19/19-04/22/21. 2. Essential hypertension with chronic systolic heart murmur II/, acute on chronic, present on admission -as evidence by initial blood pressure 195/88 -continue patient's metoprolol 50 mg q.day 3. Depression with anxiety, chronic, present on admission -patient complains moderate to severe depression, denies anxiety denies suicidal ideation -continue patient's sertraline 25 mg q.day and buspirone 5 mg q.day Code status: Full Code Surrogate decision maker: Katheryn Lane (daughter in [place]) COVID PCR: Negative DVT/VTE prophylaxis: Patient started on Plavix 75 mg and SCDs Estimated length of stay: Less than 2 midnights Scores GCS [place] coma scale eye opening: Spontaneous [place] coma scale verbal response: Orientated [place] coma scale motor response: Obey commands [place] coma scale total score: 15 NIHSS Level of Conciousness: Alert, keenly responsive Ask month/age: Answers both questions correctly. Open/close eyes, close hand: Performs both tasks correctly Best gaze horizontal: Normal Visual hodges: No visual loss Facial palsy: Normal symetrical movement Left arm drift: No drift for full 10 sec Right arm drift: No drift for full 10 sec Left leg drift: No drift for full 5 sec Right leg drift: No drift for full 5 sec Limb ataxia: Absent Sensory on face/arms/legs: Normal, no sensory loss Best language: No aphasia, normal Dysarthria: Normal Extinction or inattention: No abnormality Total NIH Stroke scale score: 0 Wells' Criteria for PE Clinical signs and symptoms of DVT: No PE is #1 Dx or equally likely: No Heart rate > 100: No Immobilization at least 3 days or surg in previous 4 weeks: No History of PE or DVT: No Hemoptysis: No Malignancy w/Treatment within 6 months or palliative: No Wells' PE Score total: 0 Quality MIPS - Admit I confirm the patient?s Advance Care Plan is present, Code status is documented, Surrogate decision maker is in patient?s record [If Yes, STOP here]: Yes
[2021-05-15 01:09] LABS: Cholesterol 220 mg/dL (140-199); HDL Cholesterol 63 mg/dL (40-60); LDL Cholesterol Calculated 131 mg/dL (<100); Magnesium 1.8 mg/dL (1.6-2.3); Triglycerides 132 mg/dL (35-150)
[2021-05-15 01:40] LABS: Thyroid Stimulating Hormone 4.25 uIU/mL (0.47-4.68)
[2021-05-15] MEDS: SODIUM CHLORIDE 0.9% 1,000 ML 100 ML IV ×2 (02:01→07:38)
[2021-05-15 02:47] LABS: D Dimer 263 ng/mL (<230)
[2021-05-15] MEDS: METOPROLOL ER 50 MG TABLET PO ×2 (03:00→09:24)
[2021-05-15 06:27] LABS: BUN Creatinine Ratio 16.7 (6-22); Blood Urea Nitrogen 10 mg/dL (7-17); Calcium 8.9 mg/dL (8.4-10.2); Carbon Dioxide 26 mmol/L (22-32); Chloride 99 mmol/L (98-107); Estimated Glomerular Filt Rate > 60.0 mL/min (>60); Glucose 92 mg/dL (80-110); HEMOLYSIS < 15 (0-50); Sodium 130 mmol/L (137-145)
[2021-05-15 06:38] LABS: Troponin I 0.034 ng/mL (0.01-0.034)
[2021-05-15] MEDS: SERTRALINE 50 MG TABLET 25 MG PO (09:25)
[2021-05-15] MEDS: BUSPIRONE 5 MG TABLET PO (09:25)
[2021-05-15] MEDS: CLOPIDOGREL 75 MG TABLET PO (09:25)
--- NOTE | 2021-05-15 10:57 | SLP.IPNOTE ---
Attempted to see patient for Speech, Language and Swallow Evaluation, but patient is down in radiology for MRI. ERIKA Major reports patient is on a heart healthy diet and ate breakfast and took pills in yogurt without difficulty this AM. She states patient is communicating clearly. Will re-attempt evaluation later today.
--- NOTE | 2021-05-15 11:16 | OT.IPNOTE ---
Check on pt for OT eval, per son pt went to get an MRI. Able to talk to pt's son regarding pt's prior level of function. To check on the pt later.
--- NOTE | 2021-05-15 11:17 | PT-IP ANOTE ---
At 1110am, JACQUELINE Jose called for help and pt apparently appeared to be very agitated and insisted to leave hospital. Pt stood up with SPC with difficulty and I provided W/C for him to sit. PA and arrived and pt requested to be DC. However, both PA and I explained to that pt has been confused, unsteady and unsafe to go home d/t high fall risks. Then I w/c pt back to his room and assisted him transferred back to bedside chair with FWW. Chair alarm activated. Reported to pt's regarding pt's progress with PT and suggested another PT session this afternoon. Left pt with to discuss their home discharge plan.
--- NOTE | 2021-05-15 12:19 | PT.IIE ---
Surgical History (Last Reviewed 05/15/21 @ 01:22 [facility] Anesthesia Medical History (Last Reviewed 05/15/21 @ 01:21 by SERA Kapadia) Abnormal chest xray Anxiety (~2019) Cataracts, bilateral Chicken pox Depression (~2019) Diverticular disease (~1969) Eczema Endometriosis Essential hypertension (01/14/17) Fibroids Hearing loss Heart murmur Measles Mixed hyperlipidemia Neuropathy Peripheral neuropathy (~2018) Post-menopause Psoriasis Rheumatic fever Seborrheic dermatitis (02/01/15) Shoulder pain (~2019) Physical Therapy Inpatient Evaluation/Re-Eval M1 PT/OT-IP Prior Functional Status Start: 05/15/21 08:29 Freq: NEEDED Status: Active Protocol: Document 05/15/21 11:13 (Rec: 05/15/21 12:15 [email or web address]) Medical Review Prior Functional Status Medical History Reviewed Yes Diet/Fluid Consistency Regular Communication no deficits noted. Mobility and Gait able to amb without AD at home and community. Uses cane occasionally for uneven grounds/ long distance. Activities of Daily Living and IADL's IND for ADLs and IADLs. Social History Household Members none Living Arrangements House Number of Floors (Floors) Two Floors Number of Stairs To Enter/Railing? 5 IAN with R rail to front porch, then 5 steps with R rail to main level back entrance has no steps, 5 steps to mainlevel as well Home Environment High Toilet,Tub/Shower Home Equipment Straight Cane,Shower Seat without Backrest,Hand Held Shower,Grab Bars Near Toilet, Grab Bars In Shower Employment Status Retired Additional Social History Comment pt has 4 children and they live in [place] [facility]. Pt stated she has neighbors to help her if needed. M2 PT-IP Current Condition Start: 05/15/21 08:29 Freq: NEEDED Status: Active Protocol: Document 05/15/21 11:13 HH (Rec: 05/15/21 12:15 [email or web address]) Physical Therapy Current Condition Current Condition Evaluation Date 05/15/21 Treatment Diagnosis TIA, confusion and dysarthria, HTN Onset Date 05/14/21 Weight Bearing Status Weight Bearing Status Full Weight Bearing M3 PT-IP Subjective Start: 05/15/21 08:29 Freq: NEEDED Status: Active Protocol: Document 05/15/21 11:13 (Rec: 05/15/21 12:15 [email or web address]) Subjective Physical Therapy Visit Type Type Initial Evaluation Visit Start Time 09:20 Visit Stop Time 10:07 Total Visit Minutes 47 Number of SENIOR ELECTRICAL ESTIMATOR Visits 0 Physical Therapy Visit Comments Patient Comments Im feeling better Patient Goals I want to go home M4 PT-IP Mobility and Gait Start: 05/15/21 08:29 Freq: NEEDED Status: Active Protocol: Document 05/15/21 11:13 (Rec: 05/15/21 12:15 [email or web address]) PT-Bed Mobility Assessment Supine to Sit Supine to Sit Standby Assistance Scooting Scooting to Edge of Bed Standby Assistance PT-Transfer Assessment Sit to and From Stand Sit to and from Stand Contact Guard Assistance,Use of Upper Extremities Equipment Transfer Assistive Device Gait Belt Orthotic/Prosthetic Devices or Brace: No Transfers Transfer Destination Bed,Chair Transfer Technique Stand Step Pivot Transfer Ability Level of Assist Contact Guard Assistance,Use of Upper Extremities Comments Mobility Comments Pt was up in bed upon PT arrvial .BP 144/67 in supine. She then completed supine to long sit without assistance and pivoted herself to R EOB. Pt completed neuro assessment. She then stood up with CGA, and ambulated to sink counter for self care. She was able to stand without support and no signs of LOB. Pt then completed 1 lap of zenda nursing station without AD and she was steady. She also completed 3 steps with R rail (step over pattern) x2 sets SBA. She then returned to her room and sat in chair comfortably. Call light placed within reach. Gait Assessment Gait Gait Assistance Required: Standby Assistance Distance (Feet) 220 Able to Maintain Weight Bearing Status Yes During Gait Assistive Devices Assistive Device Gait Belt Orthotic/Prosthetic Devices or Brace: No Gait Deviations General Gait Pattern Within Normal Limits Factors Limiting Gait Function Factors Limiting Gait Function Decreased Activity Tolerance, Decreased Strength Comments Gait Comments pt only c/o LEs fatigue towards the end of session. No abnormal gait pattern noted. Stair Climbing Assessment Evaluation Level of Assist On Stairs Standby Assistance Technique/Endurance Stair Climbing Direction Ascend and Descend Stair Climbing Technique Step Over Step Number of Steps Climbed 3 Query Text: Stair Climbing Set # Repetitions (reps) 2 Comments Stair Climbing Comments no deficits noted. PT-Balance Assessment Sitting Balance and Reactions Static Sitting Balance Ability Normal Dynamic Sitting Balance Ability Normal Standing Balance and Reactions Static Standing Balance Ability Normal Dynamic Standing Balance Ability Good M5 PT-IP Objective Assessments Start: 05/15/21 08:29 Freq: NEEDED Status: Active Protocol: Document 05/15/21 11:13 (Rec: 05/15/21 12:15 [email or web address]) Orientation Orientation/Cognition Level of Alertness Alert Orientation Name,Age,Birthday,Month,Year, Day of Week,Place,Situation Language Function Ability No Deficits Noted Safety Awareness Understands Safety Issues Memory Description No Deficits Noted Gross Range of Motion Upper Extremity ROM Assessment Within Functional Limits Lower Extremity ROM Assessment Within Functional Limits Strength Upper Extremity Strength Assessment Within Functional Limits Lower Extremity Strength Assessment Within Functional Limits Coordination Assessment Gross Coordination Gross Coordination WNL Assessment Finger to Nose Test Normal Performance Pronation/Supination Test Normal Performance Foot Tapping Test Normal Performance Heel on Marie Test Normal Performance Sensation Assessment Sensation Gross Sensation WNL Light Touch Intact Proprioception (Position) Intact Other Assessments Other Other Assessments visual field test= WFL drifting test= WFL reports slight decreased sensation to LT at R sided face and UE M7 PT-IP Assessment and Plan Start: 05/15/21 08:29 Freq: NEEDED Status: Active Protocol: Document 05/15/21 11:13 (Rec: 05/15/21 12:15 [email or web address] PT Summary Assessment and Plan Potential Rehabilitation Potential Excellent Status of Condition at Evaluation Stable Summary Impairments Strength,Activity Tolerance Assessment Summary Leatha is a 85yo male here d/t increased confusion, dysarthria and HTN with TIA. Pt's PLOF = IND without AD and live alone. Upon assessment, pt did show any neuro deficits except slight decreased sensation to light touch and fatigue on B LE after completeing 220 ft of walking without AD. Pt also denies any discomfort/ impairments at this point. She is somewhat close to baseline and she is going to have MRI brain screen to r/o stroke. Pt will benefit from acute therapy to increase her activity tolerance. She would be safe to go home if shes medically stable. Goals Bed Mobility Goal Independent Transfer Goal Independent Gait Goal Independent Gait Distance 300 Days to Meet Goals 2 Frequency of Treatment Frequency Of Treatment Once a Day Treatment Plan Physical Therapy Treatment Plan Bed Mobility Training,Transfer Training,Gait Training, Therapeutic Exercise,Balance Retraining,Discharge Planning, Neuromuscular Re-ed Other Recommendations and Next Treatment amb as tolerated Focus stair climbing with R rail Recommendations To Nursing Amount of Assist Needed Standby Assistance Discharge Recommendations PT Discharge Recommendations Home Transportation Needs at Discharge Private Vehicle
--- NOTE | 2021-05-15 12:24 | PT-IP ANOTE ---
According to OT, who spoke with pt's son, he stated that he noticed pt has been getting cognitively declined and being forgetful sometimes. He does worry about if pt can go home safely and they havent had any DC plan yet. Will f/u closely.
--- NOTE | 2021-05-15 12:54 | P.HP_ITS ---
History of Present Illness History of Present Illness Date Patient Seen: 05/15/21 Time Patient Seen: 12:54 Chief complaint: Stroke Patient History Medical History Abnormal chest xray Anxiety (~2019) Cataracts, bilateral Chicken pox Depression (~2019) Diverticular disease (~1969) Eczema Endometriosis Essential hypertension (01/14/17) Fibroids Hearing loss Heart murmur Measles Mixed hyperlipidemia Neuropathy Peripheral neuropathy (~2018) Post-menopause Psoriasis Rheumatic fever Seborrheic dermatitis (02/01/15) Shoulder pain (~2019) Surgical History Anesthesia History of carpal tunnel surgery History of hysterectomy History of tonsillectomy Family & Social History Family History Father Pancreatic cancer Brother History of heart disease Social History: household members none Prior Living Arrangements House Tobacco & Substance use: Smoking Status Former smoker alcohol intake never Substance Use Type does not use Meds Home Medications and Allergies Home Medications Medication Instructions Recorded Confirmed Type metoprolol succinate 50 mg 50 mg PO QDAY #90 tab 02/04/21 05/15/21 Rx tablet,extended release 24 hr (Toprol XL) buspirone 5 mg tablet 5 mg PO DAILY #90 tab 03/13/21 05/15/21 Rx ketoconazole 2 % topical cream 1 applic TOPICAL DAILY #30 g 03/13/21 05/15/21 Rx sertraline 25 mg tablet 25 mg PO DAILY #90 tab 04/22/21 05/15/21 Rx Allergies Allergy/AdvReac Type Severity Reaction Status Date / Time No Known Drug Allergies Allergy Verified 04/22/21 11:19 Exam Vital Signs (past 8 hours): - 05/15/21 05:41 05/15/21 08:35 05/15/21 09:24 Temperature 98.4 F 98.5 F Pulse Rate 70 61 61 Respiratory Rate 16 18 Blood Pressure 134/55 L 141/67 H 141/67 H Pulse Oximetry 94 94 Oxygen Delivery Method Room Air Oxygen Flow Rate 0 Objective Labs Result Diagrams: 05/14/21 21:07 05/15/21 05:55 Labs: Laboratory Results - last 24 hr 07/05/14/21 05/14/21 21:07 21:07 21:07 WBC 9.7 RBC 4.62 Hgb 14.3 Hct 42.9 MCV 93.0 MCH 30.9 MCHC 33.3 RDW 13.9 Plt Count 218 Neut % (Auto) 69.8 Lymph % (Auto) 20.8 L [place] % (Auto) 8.0 Eos % (Auto) 0.9 L Baso % (Auto) 0.5 Neut # (Auto) 6700 Lymph # (Auto) 2000 [place] # (Auto) 800 Eos # (Auto) 100 Baso # (Auto) 0 PT INR APTT D-Dimer Sodium 133 L Potassium 4.1 Chloride 97 L Carbon Dioxide 30 BUN 15 Creatinine 0.78 Estimated GFR > 60.0 BUN/Creatinine Ratio 19.2 Glucose 96 Calcium 9.3 Magnesium Total Bilirubin 1.3 AST 51 H ALT 17 Alkaline Phosphatase 77 Total Creatine Kinase 63 CK-MB (CK-2) TNP CK-MB (CK-2) Rel Index TNP Troponin I < 0.012 Total Protein 7.5 Albumin 4.4 Globulin 3.1 Albumin/Globulin Ratio 1.4 Triglycerides Cholesterol LDL Cholesterol, Calc HDL Cholesterol TSH 4.25 U Opiates 300ng/mL cut Ur Oxycodone Screen Urine Methadone Screen Ur Barbiturates Screen U Tricyclic Antidepress Ur Phencyclidine Scrn Ur Amphetamines Screen U Methamphetamines Scrn Ur MDMA Scrn (Ecstasy) U Benzodiazepines Scrn Urine Cocaine Screen U Marijuana (THC) Screen SARS-CoV-2 (PCR) 05/14/21 05/14/21 05/14/21 21:07 21:25 21:25 WBC RBC Hgb Hct MCV MCH MCHC RDW Plt Count Neut % (Auto) Lymph % (Auto) [place] % (Auto) Eos % (Auto) Baso % (Auto) Neut # (Auto) Lymph # (Auto) [place] # (Auto) Eos # (Auto) Baso # (Auto) PT 11.4 INR 1.0 APTT 34 D-Dimer 263 H Sodium Potassium Chloride Carbon Dioxide BUN Creatinine Estimated GFR BUN/Creatinine Ratio Glucose Calcium Magnesium 1.8 Total Bilirubin AST ALT Alkaline Phosphatase Total Creatine Kinase CK-MB (CK-2) CK-MB (CK-2) Rel Index Troponin I Total Protein Albumin Globulin Albumin/Globulin Ratio Triglycerides 132 Cholesterol 220 H LDL Cholesterol, Calc 131 H HDL Cholesterol 63 H TSH U Opiates 300ng/mL cut Ur Oxycodone Screen Urine Methadone Screen Ur Barbiturates Screen U Tricyclic Antidepress Ur Phencyclidine Scrn Ur Amphetamines Screen U Methamphetamines Scrn Ur MDMA Scrn (Ecstasy) U Benzodiazepines Scrn Urine Cocaine Screen U Marijuana (THC) Screen SARS-CoV-2 (PCR) 05/14/21 05/14/21 05/15/21 21:48 22:28 05:55 WBC RBC Hgb Hct MCV MCH MCHC RDW Plt Count Neut % (Auto) Lymph % (Auto) [place] % (Auto) Eos % (Auto) Baso % (Auto) Neut # (Auto) Lymph # (Auto) [place] # (Auto) Eos # (Auto) Baso # (Auto) PT INR APTT D-Dimer Sodium 130 L Potassium 4.0 Chloride 99 Carbon Dioxide 26 BUN 10 Creatinine 0.60 Estimated GFR > 60.0 BUN/Creatinine Ratio 16.7 Glucose 92 Calcium 8.9 Magnesium Total Bilirubin AST ALT Alkaline Phosphatase Total Creatine Kinase CK-MB (CK-2) CK-MB (CK-2) Rel Index Troponin I 0.034 Total Protein Albumin Globulin Albumin/Globulin Ratio Triglycerides Cholesterol LDL Cholesterol, Calc HDL Cholesterol TSH U Opiates 300ng/mL cut Negative Ur Oxycodone Screen Negative Urine Methadone Screen Negative Ur Barbiturates Screen Negative U Tricyclic Antidepress Negative Ur Phencyclidine Scrn Negative Ur Amphetamines Screen Negative U Methamphetamines Scrn Negative Ur MDMA Scrn (Ecstasy) Negative U Benzodiazepines Scrn Negative Urine Cocaine Screen Negative U Marijuana (THC) Screen Negative SARS-CoV-2 (PCR) Negative Quality VTE Deep Vein Thrombosis/Pulmonary Embolism Present on Admission: No
--- NOTE | 2021-05-15 13:02 | P.DS_ITS ---
History of Present Illness History of Present Illness Chief complaint: Stroke Narrative: Per Radha Lockett, ROTARY DERRICK OPERATOR-: Patient is a 85-year-old female Leatha Calhoun who was presented by EMS to the ED as a code stroke due to a sudden onset of garbled speech and confusion that was noted at 4:00 p.m. per her neighbor, (this will take her out of TPA window) when the neighbor returned to the home to check on the patient again at 7pm the confusion and word salad was continuing to worsen and the neighbor called EMS. Neighbor: Jill Claros ([phone]). She was reported to be in her normal stat e of health prior to this event. She does not take any blood thinners. Patient is confused and a poor historian and contributes nothing to the exam. EMS reports that she had a brief improvement in her symptoms but in front of them started becoming confused and garbled again. She is activated as a code stroke and taken directly to CT in ED. patient's initial blood pressure in the ED 195/88, with a heart rate 76 and respiratory rate 17 O2 saturation 89% on room air, and NiH:4. Patient has a history hypertension, depression with anxiety, and a heart murmur. Patient takes metoprolol, sertraline, and buspirone. Upon admit patient is slightly febrile at 99.1, BP elevated but improved from ED at 159/86, HR 92, R 16, O2 92% on room air. Patient's CBC was within normal limits, CMP only noted a sodium of 133, chloride 97, AST of 51, troponin negative. Head & neck CTA demonstrated no high-grade stenosis or occlusion of the central intracranial arteries nor any head or neck arteries. There is narrowing of up to approximately 50% in the carotid bulbs. Aberrant right subclavian artery. Moderate cerebral volume loss. Bilateral lacunar infarcts of indeterminate acuity. Dr. oliveros in ED consulted with tele stroke and determined that patient is not candidate for TPA, or intervention and the minimal stenosis of carotid bulbs noted on CTA are not sufficient to require intervention. Dr. oliveros attempted to contact patient's sister and the line had been disconnected. Patient is alert and orientated with a appropriate thought process intermittently. Patient intermittently during exam asked why she was here and if she was going home. Followed by moments [facility]. Patient's speech was clear and demonstrated no dysarthria/word salad. Patient denies any symptoms at this time, no chest pain, shortness of breath, change in vision, weakness, numbness, tingling, abdominal pain, nausea, vomiting, recent illness or injury, no head injury or loss of consciousness, fever, body aches, chills. Patient did complain of a severe right leg cramping during exam that resolved within seconds and a mild headache and excessive sleepiness. Patient admitted for stroke versus TIA rule out. Discharge Providers Provider Date of admission: 05/15/21 00:49 Discharge Date: 05/15/21 Primary care physician: NEY Chaudhry Consults: 05/15/21 00:44 Consult to Discharge Planning Routine Comment: Stroke vs TIA Consult to Occupational Therapy Evaluate & Treat Comment: Stroke Vs TIA Physician Instructions: Evaluate and treat Consult to Physical Therapy Evaluate & Treat Comment: Stroke vs TIA Physician Instructions: Evaluate and Treat Consult to Speech Therapy Evaluate & Treat Comment: Dysarthria Physician Instructions: Evaluate and treat Discharge provider: Ganesh Blunt DO Summary Hospital Course Discharge Diagnosis: 1. TIA 2. Essential hypertension, chronic 3., depression and anxiety, chronic Hospital Course: This is an 85-year-old female who presented after speech difficulties for approximately 4 hours. MRI was ultimately negative for an acute CVA although she did have non clinically significant bilateral carotid stenosis. Given her ABCD2 score for TIA, the patient was started on aspirin and Plavix, Plavix will be continued for 21 days. She was also started on high-intensity statin therapy. Her blood pressures were controlled on her usual home medications, and these are resumed upon discharge. There are no medication changes necessary. Due to limited availability, echocardiogram was unable to be completed, however this can be considered as an outpatient. Exam Vital Signs (past 8 hours): - 05/15/21 05:41 05/15/21 08:35 05/15/21 09:24 Temperature 98.4 F 98.5 F Pulse Rate 70 61 61 Respiratory Rate 16 18 Blood Pressure 134/55 L 141/67 H 141/67 H Pulse Oximetry 94 94 Oxygen Delivery Method Room Air Oxygen Flow Rate 0 Narrative Exam Narrative: General: Elderly female, who looks appropriate for age, in no distress at this time. HEENT: Normocephalic, atraumatic, extraocular muscles intact, oral pharynx is clear and mucous membranes are dry. Neck is supple and symmetric, trachea is midline, no adenopathy, no thyroid enlargement, nontender, no masses palpated. Negative for JVD Chest: Normal AP diameter and contour without kyphoscoliosis, no nasal flaring, retractions, or tachypneic labored Lungs: Auscultation of all lung hodges are clear without adventitious sounds, wheezes, rhonchi, or rales. Cardio: S1 & S2 with regular rate and rhythm with systolic murmur II/, and without rubs, or gallops, no carotid bruit, no cardiac pulsations present. Abdomen: Soft nontender, negative for organomegaly, or masses. Bowel sounds are present in all 4 quadrants without guarding or rebound, no CVA tenderness. Musculoskeletal: Muscle strength and tone are equal within normal limits, no deformity, crepitus, effusions, cyanosis, clubbing or edema present. Full range of motion intact radial and pedal pulses are normal. Skin: Warm dry and intact without rashes, ulcerations or petechiae. Neuro: Alert and orientated x3, strength is +5/5 in all extremities, sensation to touch intact, no gross deficits noted of cranial nerves. Psych: Patient has a well-kept appearance, appropriate affect, mental status attitude thought context and judgment are appropriate for age. Objective Labs Result Diagrams: 05/14/21 21:07 05/15/21 05:55 Labs: Laboratory Results - last 24 hr 05/14/21 05/14/21 05/14/21 21:07 21:07 21:07 WBC 9.7 RBC 4.62 Hgb 14.3 Hct 42.9 MCV 93.0 MCH 30.9 MCHC 33.3 RDW 13.9 Plt Count 218 Neut % (Auto) 69.8 Lymph % (Auto) 20.8 L [place] % (Auto) 8.0 Eos % (Auto) 0.9 L Baso % (Auto) 0.5 Neut # (Auto) 6700 Lymph # (Auto) 2000 [place] # (Auto) 800 Eos # (Auto) 100 Baso # (Auto) 0 PT INR APTT D-Dimer Sodium 133 L Potassium 4.1 Chloride 97 L Carbon Dioxide 30 BUN 15 Creatinine 0.78 Estimated GFR > 60.0 BUN/Creatinine Ratio 19.2 Glucose 96 Calcium 9.3 Magnesium Total Bilirubin 1.3 AST 51 H ALT 17 Alkaline Phosphatase 77 Total Creatine Kinase 63 CK-MB (CK-2) TNP CK-MB (CK-2) Rel Index TNP Troponin I < 0.012 Total Protein 7.5 Albumin 4.4 Globulin 3.1 Albumin/Globulin Ratio 1.4 Triglycerides Cholesterol LDL Cholesterol, Calc HDL Cholesterol TSH 4.25 U Opiates 300ng/mL cut Ur Oxycodone Screen Urine Methadone Screen Ur Barbiturates Screen U Tricyclic Antidepress Ur Phencyclidine Scrn Ur Amphetamines Screen U Methamphetamines Scrn Ur MDMA Scrn (Ecstasy) U Benzodiazepines Scrn Urine Cocaine Screen U Marijuana (THC) Screen SARS-CoV-2 (PCR) 05/14/21 05/14/21 05/14/21 21:07 21:25 21:25 WBC RBC Hgb Hct MCV MCH MCHC RDW Plt Count Neut % (Auto) Lymph % (Auto) [place] % (Auto) Eos % (Auto) Baso % (Auto) Neut # (Auto) Lymph # (Auto) [place] # (Auto) Eos # (Auto) Baso # (Auto) PT 11.4 INR 1.0 APTT 34 D-Dimer 263 H Sodium Potassium Chloride Carbon Dioxide BUN Creatinine Estimated GFR BUN/Creatinine Ratio Glucose Calcium Magnesium 1.8 Total Bilirubin AST ALT Alkaline Phosphatase Total Creatine Kinase CK-MB (CK-2) CK-MB (CK-2) Rel Index Troponin I Total Protein Albumin Globulin Albumin/Globulin Ratio Triglycerides 132 Cholesterol 220 H LDL Cholesterol, Calc 131 H HDL Cholesterol 63 H TSH U Opiates 300ng/mL cut Ur Oxycodone Screen Urine Methadone Screen Ur Barbiturates Screen U Tricyclic Antidepress Ur Phencyclidine Scrn Ur Amphetamines Screen U Methamphetamines Scrn Ur MDMA Scrn (Ecstasy) U Benzodiazepines Scrn Urine Cocaine Screen U Marijuana (THC) Screen SARS-CoV-2 (PCR) 05/14/21 05/14/21 05/15/21 21:48 22:28 05:55 WBC RBC Hgb Hct MCV MCH MCHC RDW Plt Count Neut % (Auto) Lymph % (Auto) [place] % (Auto) Eos % (Auto) Baso % (Auto) Neut # (Auto) Lymph # (Auto) [place] # (Auto) Eos # (Auto) Baso # (Auto) PT INR APTT D-Dimer Sodium 130 L Potassium 4.0 Chloride 99 Carbon Dioxide 26 BUN 10 Creatinine 0.60 Estimated GFR > 60.0 BUN/Creatinine Ratio 16.7 Glucose 92 Calcium 8.9 Magnesium Total Bilirubin AST ALT Alkaline Phosphatase Total Creatine Kinase CK-MB (CK-2) CK-MB (CK-2) Rel Index Troponin I 0.034 Total Protein Albumin Globulin Albumin/Globulin Ratio Triglycerides Cholesterol LDL Cholesterol, Calc HDL Cholesterol TSH U Opiates 300ng/mL cut Negative Ur Oxycodone Screen Negative Urine Methadone Screen Negative Ur Barbiturates Screen Negative U Tricyclic Antidepress Negative Ur Phencyclidine Scrn Negative Ur Amphetamines Screen Negative U Methamphetamines Scrn Negative Ur MDMA Scrn (Ecstasy) Negative U Benzodiazepines Scrn Negative Urine Cocaine Screen Negative U Marijuana (THC) Screen Negative SARS-CoV-2 (PCR) Negative PFSH Medical History Abnormal chest xray Anxiety (~2019) Cataracts, bilateral Chicken pox Depression (~2019) Diverticular disease (~1969) Eczema Endometriosis Essential hypertension (01/14/17) Fibroids Hearing loss Heart murmur Measles Mixed hyperlipidemia Neuropathy Peripheral neuropathy (~2018) Post-menopause Psoriasis Rheumatic fever Seborrheic dermatitis (02/01/15) Shoulder pain (~2019) Surgical History Anesthesia History of carpal tunnel surgery History of hysterectomy History of tonsillectomy Family History Father Pancreatic cancer Brother History of heart disease Social History household members: none Smoking Status: Former smoker second hand exposure: No alcohol intake: never substance use type: does not use Discharge Plan Discharge Plan Patient Disposition: Home Provider Discharge Comment: You were admitted to the hospital with symptoms of a stroke. MRI was negative for a stroke, however your symptoms are likely due to a mini-stroke or TIA. These are treated similarly to try and reduce your risk of stroke going forward. Please follow up with your PMD in the next few weeks to check in after your hospitalization. Discharge orders & Medications Prescriptions: New atorvastatin 40 mg tablet 40 mg PO BEDTIME 30 Days Qty: 30 RF: 0 clopidogrel 75 mg Tablet 75 mg PO DAILY 20 Days Qty: 20 RF: 0 aspirin 81 mg tablet,delayed release (DR/EC) 81 mg PO DAILY 30 Days Qty: 30 RF: 0 Continued metoprolol succinate [Toprol XL] 50 mg tablet extended release 24 hr 50 mg PO QDAY Qty: 90 RF: 3 ketoconazole 2 % cream 1 applic topical DAILY Qty: 30 RF: 0 buspirone 5 mg tablet 5 mg PO DAILY Qty: 90 RF: 0 sertraline 25 mg tablet 25 mg PO DAILY Qty: 90 RF: 0 Follow up/Referrals: Annie Nation ARNP [Primary Care Provider] - Diet/Activity/Treatments Diet: Diet as Tolerated Activity: As tolerated Visit Report/Discharge Packet Instructions: DI for Stroke-Ischemic, DI for Transient Ischemic Attack, Atorvastatin, Clopidogrel, Aspirin Discharge Data Primary Care Provider: Annie Nation Attending Provider: Radha Lockett VTE Deep Vein Thrombosis/Pulmonary Embolism Present on Admission: No
--- NOTE | 2021-05-15 13:55 | OT.IP.EVAL ---
Past Medical History (Last Reviewed 05/15/21 @ 01:21 by SHAMIKA Kapadia-) Abnormal chest xray Anxiety (~2019) Cataracts, bilateral Chicken pox Depression (~2019) Diverticular disease (~1969) Eczema Endometriosis Essential hypertension (01/14/17) Fibroids Hearing loss Heart murmur History of carpal tunnel surgery History of hysterectomy History of tonsillectomy Measles Mixed hyperlipidemia Neuropathy Peripheral neuropathy (~2018) Post-menopause Psoriasis Rheumatic fever Seborrheic dermatitis (02/01/15) Shoulder pain (~2019) Surgical History (Last Reviewed 05/15/21 @ 01:22 by SHAMIKA Kapadia-CHEYENNE) Anesthesia History of carpal tunnel surgery History of hysterectomy History of tonsillectomy Occupational Therapy Inpatient Evaluation/Re-Eval M1 PT/OT-IP Prior Functional Status Start: 05/15/21 16:29 Freq: NEEDED Status: Active Protocol: Document 05/15/21 16:29 [facility] (Rec: 05/15/21 16:51 [facility] [id number]) Medical Review Prior Functional Status Medical History Reviewed Yes Diet/Fluid Consistency Regular Communication no deficits noted. Mobility and Gait able to amb without AD at home and community. Uses cane occasionally for uneven grounds/ long distance. Activities of Daily Living and IADL's IND for ADLs and IADLs. Per pt having more difficulty to recall to take her medications and pay her bills on time. Prior Functional Level (Other details) Pt's son Preet in the room and feel that his mother has mentally declined in the past few months and more forgetful. Social History Household Members none Living Arrangements House Number of Floors (Floors) Two Floors Number of Stairs To Enter/Railing? 5 IAN with R rail to front porch, then 5 steps with R rail to main level back entrance has no steps, 5 steps to mainlevel as well Home Environment High Toilet,Tub/Shower Home Equipment Straight Cane,Shower Seat without Backrest,Hand Held Shower,Grab Bars Near Toilet, Grab Bars In Shower Employment Status Retired Additional Social History Comment pt has 4 children and they live in [facility], [place] and [place]. Pt stated she has neighbors to help her if needed. Pt's son states he and his mother have looked into her going to [place] to live however that his mother agreed it was a nice place but concerned about finances. M2 OT-IP Current Condition Start: 05/15/21 16:29 Freq: Status: Active Protocol: Document 05/15/21 16:29 [facility] (Rec: 05/15/21 16:51 [facility] [id number]) Occupational Therapy Current Condition Current Condition Evaluation Date 05/15/21 Treatment Diagnosis TIA Diagnosis Onset Date 05/15/21 M3 OT- IP Subjective and Pain Start: 05/15/21 16:29 Freq: Status: Active Protocol: Document 05/15/21 16:29 [facility] (Rec: 05/15/21 16:51 [facility] [id number]) OT- Subjective Occupational Therapy Visit Type Type Initial Evaluation Visit Start Time 12:15 Visit Stop Time 13:55 Total Visit Minutes 100 Occupational Therapy Visit Comments Patient Comments Pt's son present. REEL BLADE BENDER FURNACE TENDER , case management and physician present for part of OT eval. Patient/Caregiver Goals To go home. OT Pain Assessment Pain When Pain Assessed At Rest Pain Present Pain Present Denied Pain M4 OT- IP ADL's Start: 05/15/21 16:29 Freq: Status: Active Protocol: Document 05/15/21 16:29 [facility] (Rec: 05/15/21 16:51 [facility] [id number]) OT [id number] General Evaluation Self-Feeding Ability Independent Comments OT Self-Feeding Comments Pt having difficulty to chew up the meat due to missing teeth. Otherwise pt able to cut and bring food to her mouth independently. OT ADL-Grooming General Evaluation Grooming Ability Independent OT ADL-Oral Care General Eval Oral Care Ability Independent OT ADL-Dressing General Eval Upper Body Dressing Ability Independent Lower Body Dressing Ability Independent OT ADL-Toileting Comments OT Toileting Comments Pt did not have to go. OT ADL-Bathing Comments OT Bathing Comments Pt states to shower at home. M5 OT- IP IADL's Start: 05/15/21 16:29 Freq: Status: Active Protocol: Document 05/15/21 16:29 [facility] (Rec: 05/15/21 16:51 [facility] [id number]) OT-Instrumental Activities of Daily Living Home Safety Awareness Awareness of Need for Assistance at Home Decreased Awareness Medication Management Medication Management Comments Concerns for pt's safety and best to have assist. Money Management Money Management Comments Concerns for pt's safety and best to have assist. Meal Preparation Meal Preparation Comments Concerns for pt's safety and best to have assist. Reclamation Supervisor Reclamation Supervisor Comments Concerns for pt's safety and best to have assist. Driving Driving Concerns Identified Regarding Safety M6 OT- IP Functional Cognition Start: 05/15/21 16:29 Freq: Status: Active Protocol: Document 05/15/21 16:29 [facility] (Rec: 05/15/21 16:51 [facility] [id number]) Cognitive Factors Limiting Selfcare Function Cognitive Ability Level of Alertness Alert Patient Orientation Name,Age,Birthday,Month,Date, Year,Day of Week,Place, Situation Attention Span Ability Capable of Focused Attention, Capable of Sustained Attention Ability to Follow Commands Able to Follow One Step Commands Memory Description Short Term Impaired,Working Impaired Safety Awareness Underestimates Need for Assistance Problem Solving Ability Needs Assist to Identify Solutions Executive Function Ability Unable to Organize Plans, Unable to Remember Details Cognitive Tests SLUMS Pt scored 12/30 which implies dementia for pt. Pt not able to subtract 100-23, able to say 11 animals in one minute, unable to recall any of the 5 objects after time passed, not able to write the numbers correctly in a clock with correct spacing and initially forgetting to write the number 4, and not able to draw the hands on the clock correctly after time given, and able to answer 1 /4 right after a paragraph read. Pt states did not sleep well and feeling overwhelmed which may also have affected her score. Cognitive Comments Cognitive Assessment Comments Decreased safety awareness. Pt did not realize that she was stepping on the blanket which may have caused her to fall, and pt forgetting that she was about to brush her hair. Pt would benefit from initial / assist available for her safety awareness , as pt maybe able to perform better in her home environment. Best for pt not to drive at this time. M7 OT- IP Mobility and Balance Start: 05/15/21 16:29 Freq: Status: Active Protocol: Document 05/15/21 16:29 [facility] (Rec: 05/15/21 16:51 [facility] [id number]) OT-Transfer Assessment Sit to and From Stand Sit to and from Stand Independent Transfers Transfer Ability Independent Technique Transfer Destination Chair Devices Transfer Assistive Devices None Comments Mobility Comments Independent in the room. OT- Balance Assessment Sitting Balance and Reactions Static Sitting Balance Ability Normal Dynamic Sitting Balance Ability Normal Standing Balance and Reactions Static Standing Balance Ability Normal Dynamic Standing Balance Ability Good Comments Other Balance Tests/Deviations/Treatment Pt able to carry food tray to : her table with fair+ balance. M8 OT- IP Objective Assessments Start: 05/15/21 16:29 Freq: Status: Active Protocol: Document 05/15/21 16:29 [facility] (Rec: 05/15/21 16:51 [facility] [id number]) OT Gross Range of Motion Upper Extremity Range of Motion Assessment Within Functional Limits OT Strength Upper Extremity Strength Assessment Within Functional Limits OT-Muscle Tone Assessment Muscle Tone WNL Yes M9 OT- IP Assessment and Plan Start: 05/15/21 16:29 Freq: Status: Active Protocol: Document 05/15/21 16:29 [facility] (Rec: 05/15/21 16:51 [facility] [id number]) OT Summary Assessment and Plan Potential Rehabilitation Potential Good Analytic Complexity at Evaluation Moderate Summary OT Impairments Functional Cognition, Functional Mobility,Bathing Progress Towards Goals Progressing Toward Goals Assessment Summary Pt here due to TIA and main barrier is decreased functional cognition or per son , worsening of her memory. Pt scored 12/30 on SLUMS which implies dementia. Pt to go home with her son to assist and home health. Pt and son now considering a fpc facility for pt. Goals Bathing Goal Independent OT-Other Goals Pt to incorporate memory strategies to recall to take her medications and pay her bills on time. Days to Meet Goals 5 Frequency of Treatment Frequency Of Treatment Once a Day Treatment Plan OT Treatment Plan ADL Training,Functional Cognition Training,Functional Mobility,Patient/Family Education,Discharge Planning Discharge Recommendations OT Discharge Recommendations Home with 24/7 Assist Available,Home Health Transportation Needs at Discharge Private Vehicle
--- NOTE | 2021-05-15 14:22 | CM.DANOTE ---
Discharge Planning/Care Management DCP: assessment: case received, EMR reviewed, alerted that a d/c order was in and met with pt and her son Preet [place]: [phone]. Pt is an 85 year old female who was admitted to care of hospitalist team early this mornin. Payer: [employer] PT has cleared her for d/c home with no need for assistive device. OT and HINGING MACHINE OPERATOR are concerned re pt's overall thinking process which has reportedly been declining over the last few month and they recommend HH. Pt has reportedly had trouble managing her medications. Her adult children all live out of town but Preet is here today and will stay with her a couple of days. Family have been encouraging a assisted facility and pt says she has looked at [facility] and likes it. Gave encouragement to plan. Senior Resource Guide for 2020 is provided to pt and Preet. HH discussed and both open to same. Agency list discussed with [employer] Medicare specifics. [facility] agrees to accept but cautions that dependent on plan they may not be able to accept. She agrees to call son if they cannot accept. OT initially recommended walker but after talking further with PT and now decided this is not need. Pt is up currently dressing her self and preparing for home. Home today as per above. Advanced directive, confirm from FAMILY Start: 05/15/21 01:13 Freq: Q24H Status: Active Protocol: Document 05/15/21 01:13 [facility] (Rec: 05/15/21 03:03 [facility] [id number]) Advance Directive, confirm on record Time 03:01 Person contacted patient unable to give name of poa Copy received No CM Discharge Assessment Start: 05/15/21 14:18 Freq: Status: Active Protocol: Document 05/15/21 14:19 ITV (Rec: 05/15/21 14:21 ITV [id number]) Discharge Planning Assessment Advance Directives? Yes Advance Directives on File No History Provided By Patient,Family Member,Medical Record Prior Living Arrangements House Household Members none Comment has not been driving recently Independent with ADL's Yes Referrals Initiated Home Health Additional Comment barrier: [employer] Medicare network and need for authorization If patient plan is home with home health Yes : Has signed face to face form been completed? Review Status In Process
--- NOTE | 2021-05-15 14:34 | PC.NURSE ---
Pt IV and tele removed. Pt is dressed and ready for discharge home with Son Preet. Went over d/c instructions with Pt and Son - discussed d/c meds, time of last dose, reviewed stroke and TIA, Plavix, Lipitor, ASA, follow up and answered all other questions. Pt out vis w/c by CLAIMS COUNSEL to POV with Son and all belongings.
== END 2021-05-15 14:41 | disposition home or self-care (01) ==
LOC: ED 23:49 → AC 05-15 01:06
PROVIDERS: Admitting Provider Nurse Practitioner Family; Emergency Provider Emergency Medicine; Family Provider Family Medicine; PCP Nurse Practitioner Family; Referring Provider Emergency Medicine; Visit Provider Nurse Practitioner Family
DX: G45.9 Transient cerebral ischemic attack, unspecified (principal); R47.81 Slurred speech; F32.9 Major depressive disorder, single episode, unspecified; F41.9 Anxiety disorder, unspecified; I10 Essential (primary) hypertension; R01.1 Cardiac murmur, unspecified; Z20.822 Contact with and (suspected) exposure to COVID-19
CPT/HCPCS: 36415; 70450; 70496; 70498; 70548; 70553; 80048; 80053; 80061; 80305; 81003; 82550; 82962; 83735; 84443; 84484; 85025; 85379; 85610; 85730; 87635; 92610; 93005; 93010; 96361; 96374; 96375; 97116; 97161; 97166; 97530; 99284; C9803; G0378; J2405

== ENCOUNTER → 2021-06-21 10:11 | Outpatient (CLI) | payer OTHER, SELFPAY ==
[2021-05-15 00:57] VITALS: BMI 22.6
--- NOTE | 2021-06-21 10:13 | DI.MG.S_ITS ---
BILATERAL DIGITAL SCREENING MAMMOGRAM 3D/2D WITH CAD: 06/21/2021 CLINICAL: Routine screening. Comparison is made to exams dated: 03/10/2019 mammogram, 01/13/2018 mammogram, and 11/05/2016 mammogram - [facility]. There are scattered fibroglandular elements in both breasts. Current study was also evaluated with a Computer Aided Detection (CAD) system. There are benign vascular calcifications in both breasts. No significant masses, calcifications, or other findings are seen in either breast. There has been no significant interval change. IMPRESSION: BENIGN There is no mammographic evidence of malignancy. A 1 year screening mammogram is recommended. This exam was interpreted at Station ID: [id number]. NOTE: For mammograms, a report in lay terms will be sent to the patient. Approximately 15% of breast malignancies will not be visualized mammographically. In the management of a palpable breast mass, a negative mammogram must not discourage biopsy of a clinically suspicious lesion. Electronically Signed By: Jesusita keen/tiffany:06/23/2021 08:54:33 letter sent: Normal Exam ACR BI-RADS Category 2: Benign Finding(s) 3342F
== END ==
PROVIDERS: Family Provider Nurse Practitioner Family; PCP Nurse Practitioner Family; Referring Provider Nurse Practitioner Family; Visit Provider Nurse Practitioner Family
DX: Z12.31 Encounter for screening mammogram for malignant neoplasm of breast (principal)
CPT/HCPCS: 77063; 77067

== ENCOUNTER → 2021-06-24 14:47 | Outpatient (CLI) | payer OTHER, SELFPAY ==
[2021-05-15 00:57] VITALS: BMI 22.6
--- NOTE | 2021-06-24 14:50 | DI.ECHO.S_ITS ---
[facility]---------+ [facility] +---------+ : : [address] : [place] : : : : [id number] : : : : Phone: [phone] +---------+ Echocardiogram Report + + :Name: ALANIS SNEED Study Date: 06/24/2021 Height: 60 in : :[place] [employer] [facility] ReadingLocation: Weight: 128 lb : : Gender: Female BSA: 1.5 m2 : :: 1935 Age: 85 yrs BP: 138/72 mmHg: :Reason For Study: ORALIA : :Ordering Physician: MEHDI, : :MERCEDES Performed By: Arabella Espinosa : :Referring: MERCEDES HARDING : + + Interpretation Summary The ejection fraction is estimated to be 65-70%. Diastolic function was not assessed. The right ventricle is normal in size and function. The left atrium is mildly dilated. There is mild aortic stenosis. Unable to estimate PASP. Procedure: A two-dimensional transthoracic echocardiogram with color flow and Doppler was performed. Comparison is made with the echocardiogram of 09/16/2012. A two-dimensional transthoracic echocardiogram with color flow and Doppler was performed in limited views only. The patient was in sinus rhythm with heart rates between 59-64 bpm during the exam. Left Ventricle: The left ventricle is normal in size and wall thickness. The ejection fraction is estimated to be 65-70%. Diastolic function was not assessed. Right Ventricle: The right ventricle is normal in size and function. Atria: The left atrium is mildly dilated. Right atrial size is normal. There is no Doppler evidence for an interatrial shunt. Aortic Valve: The aortic valve is trileaflet. The aortic valve is moderately calcified. The calculated aortic valve area is 1.4 cm2. The peak aortic velocity is 2.1 m/sec. The aortic valve mean gradient is 10 mmHg. There is mild aortic stenosis. Great Vessels: The aortic root is normal size. The IVC is of normal diameter and collapses greater than 50% with a sniff. This suggests a low right atrial pressure of 3 mm Hg. Pericardium/ Pleura There is no pericardial effusion. There is no pleural effusion. MMode/2D Measurements & Calculations LVIDd: 4.3 cm LVOT diam: 2.0 cm LVIDs: 2.6 cm Ao root diam: 2.8 cm FS: 38.1 % IVSd: 0.86 cm LVPWd: 0.91 cm LV adhikari. diameter/BSA (cm/m^2): 2.8 LV sys. diameter/BSA (cm/m^2): 1.7 LA A2 area: 21.7 cm2 RA long axis: 4.4 cm LA A4 area: 17.7 cm2 RA area: 12.7 cm2 LA length (vol): 5.1 cm RA vol: 30.6 ml LA vol: 64.4 ml RA : 19.8 ml/m2 LA vol index: 41.7 ml/m2 IVC diam: 1.3 cm RVD1 (basal): 3.3 cm TAPSE: 2.7 cm Doppler Measurements & Calculations Ao V2 max: 211.6 cm/sec LVOT Max Raffy: 100.2 cm/sec Ao V2 mean: 147.8 cm/sec LV V1 max P.0 mmHg Ao max P.9 mmHg LV V1 VTI: 21.9 cm Ao mean P.8 mmHg DAVON(I,D): 1.3 cm2 Ao V2 VTI: 49.2 cm DAVON(V,D): 1.4 cm2 sev ratio: 0.44 DAVON indexed to BSA (cm^2/m^2): 0.87 SV(LVOT): 65.8 ml Reading Physician:04:33 PM
== END ==
PROVIDERS: Family Provider Nurse Practitioner Family; PCP Nurse Practitioner Family; Referring Provider Nurse Practitioner Family; Visit Provider Nurse Practitioner Family
DX: I63.9 Cerebral infarction, unspecified (principal); I35.0 Nonrheumatic aortic (valve) stenosis
CPT/HCPCS: 93307